=== PATIENT | female | born 1990 | race Caucasian/White ===

== ENCOUNTER 2021-03-10 18:03 | Inpatient (IN) | payer OTHER ==
[2021-03-10 18:50] LABS: #Basophils 0.1 10x3/uL (0.0-0.2); #Eosinphils 0.2 10x3/uL (0.0-0.5); #Neutrophils 6.6 10x3/uL (1.5-8.4); %Basophils 0.7 % (0.0-2.0); %Eosinophils 2.1 % (0.0-6.0); %Lymphocytes 30.3 % (18.0-47.0); %Monocytes 8.8 % (0.0-10.0); %Neutrophils 57.8 % (40.0-75.0); Hemoglobin 11.9 g/dL (12.0-15.5); Mean Corpuscular HGB CONC 31.5 g/dL (32.0-36.0); Mean Corpuscular Hemoglobin 24.3 pg (27.0-33.0); Mean Corpuscular Volume 77.3 fl (81.6-98.3); Mean Platelet Volume 11.3 fl (7.4-10.4); Platelet Count 454 10x3/uL (150-450); RBC Distribution Width 14.3 % (11.5-14.5); Red Blood Cell (RBC) Count 4.89 10x6/uL (3.90-5.03); White Blood Cell (WBC) Count 11.5 10x3/uL (3.5-10.5)
[2021-03-10 18:55] LABS: ALT (SGPT) 91 U/L (8-55); AST (SGOT) 56 U/L (5-34); Albumin 3.5 g/dL (3.5-5.0); Alkaline Phosphatase 150 U/L (40-110); Anion Gap 15 mmol/L (10-20); BUN (Urea Nitrogen) 14 mg/dL (7.0-18.7); Bilirubin, Total 0.4 mg/dL (0.2-1.2); Calc. Creatinine Clearance 0 mL/min (70-130); Calcium 8.8 mg/dL (7.8-10.44); Carbon Dioxide 23 mmol/L (22-29); Chloride 97 mmol/L (98-107); Globulin 3.2 g/dL (2.4-3.5); Potassium 4.8 mmol/L (3.5-5.1); Protein, Total 6.7 g/dL (6.0-8.3); Sodium 130 mmol/L (136-145)
[2021-03-10 19:02] LABS: Glucose 594 mg/dL (70-105)
[2021-03-10] MEDS ORDERED: Furosemide 40 MG/4 ML VIAL ONE (21:51)
[2021-03-10] MEDS ORDERED: Senokot S 8.6-50 MG TAB PO PRN (22:14)
[2021-03-10] MEDS ORDERED: Zolpidem Tartrate 5 MG TAB PO PRN (22:14)
[2021-03-10] MEDS ORDERED: Insulin Regular 300 UNITS/3 ML VIAL SC PRN (22:14)
[2021-03-10] MEDS ORDERED: Guaifenesin DM 100-10/5 ML UDCUP PO PRN (22:14)
[2021-03-10] MEDS ORDERED: Calcium Carbonate 500 MG ChewTAB PO PRN (22:14)
[2021-03-10] MEDS ORDERED: Ondansetron PF 4 MG/2 ML Vial IVP PRN (22:14)
[2021-03-10] MEDS ORDERED: HYDROcodone/Acetaminophen 5/325 mg Tablet PO PRN (22:14)
[2021-03-10] MEDS ORDERED: Dextrose 5% in Water 1,000 ML IV PRN (22:14)
[2021-03-10] MEDS ORDERED: Dextrose 50% Abboject 50 ML SYRINGE SLOW IVP PRN (22:14)
[2021-03-10] MEDS ORDERED: HumaLOG 300 UNITS/3 ML VIAL SC SCH (22:15)
[2021-03-10] MEDS ORDERED: Nitroglycerin 2% Ointment 1 INCH/1 GM Packet ONE (22:28)
[2021-03-10 22:38] LABS: Bilirubin Neg (Negative); Blood, Urine Negative (Negative); Clarity Clear (Clear); Glucose, Urine (Dipstick) >=1000 mg/dL (Negative); Ketone, Urine Negative (Negative); Leukocyte 25 (Negative); Nitrite Negative (Negative); Protein, Urine (Dipstick) 30 mg/dl (Neg-Trace); Urobilinogen Normal mg/dL (Less than 2)
[2021-03-10 22:53] LABS: SARS-CoV-2 NAA Rapid Test Not Detected (NotDetected)
[2021-03-10 22:57] LABS: BHCG - Serum Negative (NEGATIVE); Pregs Control Background? CLEAR/WHITE (CLR/WHITE); Pregs Control Bar Appear? YES (CONTROL BAR)
[2021-03-10 23:00] LABS: Phosphorus 4.4 mg/dL (2.3-4.7)
[2021-03-10 23:02] LABS: Magnesium 1.8 mg/dL (1.6-2.6)
[2021-03-10 23:02] LABS: RBC/HPF None Seen HPF (0-3); Squamous Epithelial 0-3 HPF (0-3); WBC/HPF 0-3 HPF (0-3)
[2021-03-10 23:03] LABS: Bacteria/HPF 1+ HPF (None Seen); Mucous/LPF 1+ LPF (<2+); Yeast-Budding 1+ HPF (None Seen)
[2021-03-11] MEDS ORDERED: Acetaminophen 325 MG TAB ONE (00:21)
[2021-03-11] MEDS ORDERED: Insulin Regular 300 UNITS/3 ML VIAL SC SCH (02:00)
[2021-03-11] MEDS ORDERED: FLU VACC QS2021-22(6MOS UP)/PF 60 MCG/0.5 ML SYRINGE IM ONE (04:30)
[2021-03-11 04:49] LABS: Pregnancy Test - Urine (BHCG) Negative (Negative); Pregu Control Background? CLEAR/WHITE (CLR/WHITE); Pregu Control Bar Appear? YES (CONTROL BAR)
[2021-03-11 05:19] LABS: #Basophils 0.1 10x3/uL (0.0-0.2); #Eosinphils 0.3 10x3/uL (0.0-0.5); #Neutrophils 4.3 10x3/uL (1.5-8.4); %Basophils 0.9 % (0.0-2.0); %Eosinophils 3.1 % (0.0-6.0); %Lymphocytes 37.4 % (18.0-47.0); %Monocytes 10.8 % (0.0-10.0); %Neutrophils 47.5 % (40.0-75.0); Hemoglobin 10.9 g/dL (12.0-15.5); Mean Corpuscular HGB CONC 31.1 g/dL (32.0-36.0); Mean Corpuscular Hemoglobin 24.1 pg (27.0-33.0); Mean Corpuscular Volume 77.5 fl (81.6-98.3); Mean Platelet Volume 11.2 fl (7.4-10.4); Platelet Count 385 10x3/uL (150-450); Red Blood Cell (RBC) Count 4.53 10x6/uL (3.90-5.03); White Blood Cell (WBC) Count 9.1 10x3/uL (3.5-10.5)
[2021-03-11 05:22] LABS: Anion Gap 14 mmol/L (10-20); BUN (Urea Nitrogen) 12 mg/dL (7.0-18.7); Calc. Creatinine Clearance 141 mL/min (70-130); Calcium 8.4 mg/dL (7.8-10.44); Carbon Dioxide 25 mmol/L (22-29); Chloride 101 mmol/L (98-107); Glucose 273 mg/dL (70-105); Iron 13 ug/dL (50-170); Iron Binding Capacity, Total 323 mcg/dL (265-497); Potassium 3.2 mmol/L (3.5-5.1); Sodium 137 mmol/L (136-145)
[2021-03-11] MEDS: Furosemide 40 MG/4 ML VIAL SLOW IVP SCH ×2 (06:04→14:10)
[2021-03-11 06:13] VITALS: BMI 30.3
[2021-03-11] MEDS: Acetaminophen 325 MG TAB PO PRN ×3 (06:18→14:11)
[2021-03-11 07:32] LABS: Ferritin 15.67 ng/mL (10-291); Thyroid Stimulating Hormone 3.3711 uIU/mL (0.35-4.94)
[2021-03-11] MEDS ORDERED: Potassium Chloride 20 MEQ TAB PO SCH (08:00)
[2021-03-11 09:00] LABS: Phosphorus 3.8 mg/dL (2.3-4.7)
[2021-03-11] MEDS ORDERED: Lantus 1000 UNITS/10 ML VIAL SC SCH (09:00)
[2021-03-11 09:02] LABS: Alcohol Less than 10 mg/dL (Less than 10); Magnesium 1.5 mg/dL (1.6-2.6)
[2021-03-11 09:20] LABS: INR-International Normal Ratio 1.1; PTT 21.7 sec (22.0-33.0); Prothrombin Time 11.7 sec (9.5-12.1)
[2021-03-11] MEDS: Ferrous Sulfate 325 MG TAB PO SCH (10:22)
[2021-03-11] MEDS: Aspirin 81 mg Enteric Coated Tablet PO SCH (10:23)
[2021-03-11] MEDS: Lisinopril 2.5 MG TAB PO SCH (10:23)
[2021-03-11] MEDS: Enoxaparin Sodium 40 MG/0.4 ML SYRINGE SC SCH (10:24)
[2021-03-11] MEDS: Carvedilol 3.125 MG TAB PO SCH ×2 (10:24→17:09)
[2021-03-11 11:16] LABS: Hemoglobin A1c Greater than 14.0 % (4.0-6.0)
[2021-03-11] MEDS ORDERED: Electrolyte Replacement Protocol 1 EACH FS SCH (12:00)
[2021-03-11 14:52] LABS: Potassium 4.1 mmol/L (3.5-5.1)
[2021-03-11] MEDS: Magnesium 2 GM/50 ML 2 GM in Premix Bag 1 BAG IVPB SCH ×3 (15:00→17:24)
[2021-03-11 15:22] LABS: Amphetamine Not Detected (NotDetected); Barbiturates Screen Not Detected (NotDetected); Benzodiazepine Screen Not Detected (NotDetected); Cocaine Metabolite Screen Not Detected (NotDetected); Methadone Not Detected (NotDetected); Methamphetamine Not Detected (NotDetected); Opiate Screen Not Detected (NotDetected); Oxycodone Screen Not Detected (NotDetected); Phencyclidine (PCP) Not Detected (NotDetected); THC/Cannabinoid Screen Not Detected (NotDetected); Tricyclic Screen Not Detected (NotDetected)
[2021-03-11] MEDS: Insulin Regular 300 UNITS/3 ML VIAL SC PRN (21:26)
[2021-03-11] MEDS: Lantus 1000 UNITS/10 ML VIAL SC SCH (21:27)
[2021-03-11] MEDS: Gabapentin 300 MG CAP PO SCH (21:30)
[2021-03-12] MEDS: Insulin Regular 300 UNITS/3 ML VIAL SC PRN ×2 (00:20→14:05)
[2021-03-12 04:23] LABS: #Basophils 0.1 10x3/uL (0.0-0.2); #Eosinphils 0.6 10x3/uL (0.0-0.5); #Monocytes 0.8 10x3/uL (0.0-1.1); #Neutrophils 2.8 10x3/uL (1.5-8.4); %Basophils 0.9 % (0.0-2.0); %Eosinophils 7.6 % (0.0-6.0); %Lymphocytes 45.9 % (18.0-47.0); %Monocytes 10.1 % (0.0-10.0); %Neutrophils 35.4 % (40.0-75.0); Hemoglobin 11.2 g/dL (12.0-15.5); Mean Corpuscular Volume 77.3 fl (81.6-98.3); Platelet Count 378 10x3/uL (150-450); RBC Distribution Width 14.3 % (11.5-14.5); Red Blood Cell (RBC) Count 4.67 10x6/uL (3.90-5.03)
[2021-03-12 04:43] LABS: ALT (SGPT) 90 U/L (8-55); AST (SGOT) 86 U/L (5-34); Albumin 2.8 g/dL (3.5-5.0); Alkaline Phosphatase 101 U/L (40-110); Anion Gap 12 mmol/L (10-20); BUN (Urea Nitrogen) 14 mg/dL (7.0-18.7); Bilirubin, Total 0.4 mg/dL (0.2-1.2); Calc. Creatinine Clearance 157 mL/min (70-130); Calcium 8.2 mg/dL (7.8-10.44); Carbon Dioxide 29 mmol/L (22-29); Chloride 103 mmol/L (98-107); Globulin 2.6 g/dL (2.4-3.5); Glucose 81 mg/dL (70-105); Magnesium 1.9 mg/dL (1.6-2.6); Protein, Total 5.4 g/dL (6.0-8.3); Sodium 141 mmol/L (136-145)
[2021-03-12 04:49] LABS: Troponin I 0.011 ng/mL (< 0.028)
[2021-03-12 05:24] LABS: Potassium 2.8 mmol/L (3.5-5.1)
[2021-03-12 05:26] LABS: Phosphorus 4.6 mg/dL (2.3-4.7)
[2021-03-12] MEDS ORDERED: Magnesium 2 GM/50 ML 2 GM in Premix Bag 1 BAG IVPB SCH (06:30)
[2021-03-12] MEDS: Potassium Chloride 20 MEQ TAB PO SCH ×2 (06:31→09:10)
[2021-03-12] MEDS ORDERED: Potassium Chloride 20 MEQ TAB PO SCH (06:45)
[2021-03-12] MEDS: Furosemide 40 MG/4 ML VIAL SLOW IVP SCH (06:57)
[2021-03-12] MEDS: Lantus 1000 UNITS/10 ML VIAL SC SCH (09:03)
[2021-03-12] MEDS: Aspirin 81 mg Enteric Coated Tablet PO SCH (09:10)
[2021-03-12] MEDS: Carvedilol 3.125 MG TAB PO SCH ×2 (09:11→17:54)
[2021-03-12] MEDS: Ferrous Sulfate 325 MG TAB PO SCH (09:11)
[2021-03-12] MEDS: Lisinopril 2.5 MG TAB PO SCH (09:11)
[2021-03-12] MEDS: Enoxaparin Sodium 40 MG/0.4 ML SYRINGE SC SCH (09:12)
[2021-03-12] MEDS: Gabapentin 300 MG CAP PO SCH ×2 (09:13→21:43)
[2021-03-12] MEDS ORDERED: Spironolactone 25 MG TAB PO SCH (09:15)
[2021-03-12 13:25] LABS: DRVVT Confirm 36.8; HEX PHOS LA Tube 1 37.2 SEC; HEX PHOS LA Tube 2 35.4 SEC; Hexagonal Phospholipid Neut 1.8 SEC (0-8.0)
[2021-03-12] MEDS ORDERED: Furosemide 20 MG TAB PO SCH (14:00)
[2021-03-12 14:13] LABS: Potassium 4.7 mmol/L (3.5-5.1)
[2021-03-12 14:20] LABS: Cardiolipin IgA Ab 2.7 APL-U/mL (<14 Negative); Cardiolipin IgG Ab 0.7 GPL-U/mL (<10 Negative); Cardiolipin IgM Ab Less than 0.8 MPL-U/mL (<10 Negative); EliA APS New Method **** NEW METHOD ****; beta-2-Glycoprotein I IgA Ab 2.5 U/mL (<7 Negative); beta-2-Glycoprotein I IgG Ab 1.1 U/mL (<7 Negative); beta-2-Glycoprotein I IgM Abs Less than 2.9 U/mL (<7 Negative)
[2021-03-12] MEDS: HumaLOG 300 UNITS/3 ML VIAL SC PRN (20:01)
[2021-03-12] MEDS ORDERED: Lantus 1000 UNITS/10 ML VIAL SC SCH (21:00)
[2021-03-13] MEDS: HumaLOG 300 UNITS/3 ML VIAL SC PRN ×2 (06:08→18:02)
[2021-03-13] MEDS ORDERED: Carvedilol 6.25 MG TAB PO SCH (08:00)
[2021-03-13] MEDS: Lisinopril 2.5 MG TAB PO SCH (08:41)
[2021-03-13] MEDS: Ferrous Sulfate 325 MG TAB PO SCH (08:41)
[2021-03-13] MEDS: Gabapentin 300 MG CAP PO SCH (08:41)
[2021-03-13] MEDS: Enoxaparin Sodium 40 MG/0.4 ML SYRINGE SC SCH (08:42)
[2021-03-13] MEDS ORDERED: Spironolactone 25 MG TAB PO SCH ×2 (09:00)
[2021-03-13 12:06] LABS: Magnesium 1.8 mg/dL (1.6-2.6)
[2021-03-13 12:24] VITALS: TEMP 97.7
[2021-03-13] MEDS ORDERED: Magnesium 2 GM/50 ML 2 GM in Premix Bag 1 BAG IVPB SCH (13:15)
[2021-03-13] MEDS ORDERED: Furosemide 20 MG TAB PO SCH (14:00)
[2021-03-13 16:56] VITALS: BP 90/60
== END 2021-03-13 20:04 | disposition home or self-care (01) | DRG 291 ==
LOC: CSHERS 18:03 → CSHTELE 18:04
PROVIDERS: ADMIT Student in an Organized Health Care Education/Training Program; ATTEND Internal Medicine
DX: I11.0 Hypertensive heart disease with heart failure (principal); I50.21 Acute systolic (congestive) heart failure; E87.1 Hypo-osmolality and hyponatremia; I42.9 Cardiomyopathy, unspecified; E10.65 Type 1 diabetes mellitus with hyperglycemia; R74.01 Elevation of levels of liver transaminase levels; F41.9 Anxiety disorder, unspecified; F17.210 Nicotine dependence, cigarettes, uncomplicated; D50.9 Iron deficiency anemia, unspecified; I07.1 Rheumatic tricuspid insufficiency; Z20.822 Contact with and (suspected) exposure to COVID-19; Z90.49 Acquired absence of other specified parts of digestive tract; Z86.718 Personal history of other venous thrombosis and embolism
CPT/HCPCS: 36415; 36416; 71045; 80048; 80053; 80306; 80307; 81003; 81015; 81025; 82010; 82728; 83036; 83540; 83550; 83735; 83880; 84100; 84439; 84443; 84484; 84703; 85025; 85240; 85250; 85379; 85598; 85610; 85613; 85730; 86146; 86147; 93005; 93010; 93306; 93970; 96374; 97139; J1815; J1940; J2405; J3475; U0002

== ENCOUNTER 2022-01-19 03:30 | Emergency (ER) | payer OTHER ==
[2022-01-19] MEDS ORDERED: Fentanyl 100 MCG/2 ML VIAL ONE (04:53)
[2022-01-19] MEDS ORDERED: Ondansetron ODT 4 MG TAB ONE (04:54)
[2022-01-19] MEDS ORDERED: Dexamethasone 4 MG TAB ONE (06:15)
== END 2022-01-19 09:03 | disposition home or self-care (01) ==
LOC: CSHERS 03:30
DX: R10.31 Right lower quadrant pain (principal); I50.9 Heart failure, unspecified; E10.9 Type 1 diabetes mellitus without complications; I10 Essential (primary) hypertension; Z79.4 Long term (current) use of insulin; Z79.899 Other long term (current) drug therapy; Z79.82 Long term (current) use of aspirin
CPT/HCPCS: 72192; J3010; J8540; Q0162

== ENCOUNTER 2022-02-09 01:13 | Emergency (ER) | payer OTHER ==
[2022-02-09 02:07] LABS: Bilirubin Neg (Negative); Blood, Urine Negative (Negative); Clarity Clear (Clear); Glucose, Urine (Dipstick) >=1000 mg/dL (Negative); Ketone, Urine Negative (Negative); Leukocyte 25 (Negative); Nitrite Negative (Negative); Protein, Urine (Dipstick) Negative (Neg-Trace); Urobilinogen Normal mg/dL (Less than 2)
[2022-02-09 02:09] LABS: Pregnancy Test - Urine (BHCG) Negative (Negative); Pregu Control Background? CLEAR/WHITE (CLR/WHITE); Pregu Control Bar Appear? YES (CONTROL BAR)
[2022-02-09 02:15] LABS: Bacteria/HPF Rare-Few HPF (None Seen); RBC/HPF 0-3 HPF (0-3); Squamous Epithelial 0-3 HPF (0-3); Yeast-Budding Rare HPF (None Seen)
[2022-02-09] MEDS ORDERED: methylPREDNISolone Sod Succ/PF 125 MG/2 ML VIAL ONE (02:29)
== END 2022-02-09 02:41 | disposition home or self-care (01) ==
LOC: CSHERS 01:13
DX: M54.50 Low back pain, unspecified (principal); I11.0 Hypertensive heart disease with heart failure; I50.9 Heart failure, unspecified; E11.9 Type 2 diabetes mellitus without complications; F17.210 Nicotine dependence, cigarettes, uncomplicated
CPT/HCPCS: 81003; 81015; 81025; 87077; 87086; 96372; 99283; J2930

== ENCOUNTER 2022-08-05 15:31 | Emergency (ER) | payer OTHER | END 2022-08-05 17:17 | disposition home or self-care (01) | LOC: CSHERS 15:31 | DX: B08.4 Enteroviral vesicular stomatitis with exanthem (principal); I11.0 Hypertensive heart disease with heart failure; I50.9 Heart failure, unspecified; E10.9 Type 1 diabetes mellitus without complications; F17.210 Nicotine dependence, cigarettes, uncomplicated | CPT/HCPCS: 99283 ==